=== PATIENT | female | born 1960 | race Two or more races ===

== ENCOUNTER 2024-09-29 11:54 | Emergency (ER) | payer OTHER ==
[~2024-09-29] VITALS: Ht 165.1 cm; Wt 77.0 kg
--- NOTE | 2024-09-29 12:02 | ECG ---
[facility] Test Date: 2024-09-29 Test Time: 12:01:12 Pat Name: NICOLE ALFORD Department: ER Room: Gender: F [employer]ty Manufacturing Supervisor: LYUDMILA : 1960 Requested By: ODELL MCINTOSH Order Number: [id number] Reading MD: Measurements Intervals [place] Rate: 86 P: 30 [place]: 141 QRS: -72 QRSD: 90 T: 56 QT: 401 QTc: 480 Interpretive Statements Sinus rhythm Left anterior fascicular block Abnormal R-wave progression, late transition Please click the below link to view image of tracing.
[2024-09-29] MEDS: ASPirin 325 MG TAB PO ONE (12:30)
[2024-09-29] MEDS: NITROGLYCERIN 2% OINT 1GM PKG TD ONE (12:30)
[2024-09-29] MEDS: ACETAMINOPHEN 500 MG TAB or CAP PO ONE (12:31)
[2024-09-29 12:40] VITALS: PULSE 85; RESP 18; O2SAT 96
--- NOTE | 2024-09-29 12:58 | ED.PDOC ---
HPI Comments 64 y.o female with PMHx of HTN, DJD, chronic back pain, DM, Hyperlipidemia, uterine cancer, presents to the ED via EMS for a chief complaint of intermittent substernal chest pain associated with palpitations and left arm numbness that started 2 weeks ago. Patient describes pain as sharp and is accompanied with spasms that last a couple of minutes. Patient reports symptoms worsened yesterday after coming back from a health fair, states she took her insulin at night but woke up in the middle of the night with BG reading 63. Patient also mentions SOB which worsens her chronic back pain. Patient denies any nausea, vomiting, fever, chills, recent illness, or contact exposure. Patient's blood pressure read 206/76 upon ED arrival. Patient has family history of DM and CHF. Chief Complaint: Palpitations Time Seen by MD: 12:02 Reviewed Notes: Nurses Notes, Medications, Allergies Allergies: Coded Allergies: Cephalexin (Verified Allergy, Unknown, 09/29/24) Information Source: Patient Mode of Arrival: Ambulatory Severity: Moderate Timing: Weeks (2) Duration: Intermittent Location: Substernal Quality: Sharp, Stabbing Onset: At Rest Cardiac Risk Factors: Family History, Hyperlipidemia, HTN, Diabetes PE Risk Factors: None History of: None Modifying Factors: Nothing Associated Signs and Symptoms: SOB, Palpitations, Back Pain Past Medical History PAST MEDICAL HISTORY: Cancer (uterine ), DM, High Lipids, HTN Past Medical History (Other): DJD, chronic back pain, right wrist infection Surgical History: Hysterectomy Surgical History (Other): right wrist and lymph nodes 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 History Family History Family History: Reviewed,noncontributory to illness, No family hx of Cancer, No family hx of DM, No family hx of Heart elen, No family hx of HTN, No family hx ofKidney elen, No family hx of Liver elen, No family hx of Lung elen, No family hx of Stroke Social History Smoker: Non-Smoker Alcohol: Denies ETOH Use Drugs: Denies Drug Use Lives In: Home Constitutional: denies: chills, diaphoresis, fatigue, fever, malaise, sweats, weakness, others EENTM: denies: blurred vision, double vision, ear bleeding, ear discharge, ear drainage, ear pain, ear ringing, eye pain, eye redness, hearing loss, mouth pain, mouth swelling, nasal discharge, nose bleeding, nose congestion, nose pain, photophobia, tearing, throat pain, throat swelling, voice changes, others Respiratory: reports: SOB at rest, shortness of breath, SOB with excertion; denies: cough, hemoptysis, orthopnea, stridor, wheezing, others Cardiovascular: reports: chest pain, palpitations; denies: dizzy spells, diaphoresis, Dyspnea on exertion, edema, irregular heart beat, left arm pain, lightheadedness, PND, syncope, others Gastrointestinal: denies: abdomen distended, abdominal pain, blood streaked bowels, constipated, diarrhea, dysphagia, difficulty swallowing, hematemesis, melena, nausea, poor appetite, poor fluid intake, rectal bleeding, rectal pain, vomiting, others Genitourinary: denies: abnormal vagina bleeding, burning, dyspareunia, dysuria, flank pain, frequency, hematuria, incontinence, pain, , vagina discharge, urgency, others Neurological: denies: dizziness, fainting, headache, left sided numbness, left sided weakness, numbness, paresthesia, pre-existing deficit, right sided numbness, right sided weakness, seizure, speech problems, tingling, tremors, weakness, others Musculoskeletal: denies: back pain, gout, joint pain, joint swelling, muscle pain, muscle stiffness, neck pain, others Integumetry: denies: bruises, change in color, change in hair/nails, dryness, laceration, lesions, lumps, rash, wounds, others Allergic/Immunocompromised: denies: Difficulty Healing, Frequent Infections, Hives, Itching, others Hematologic/Lymphatic: denies: anemia, blood clots, easy bleeding, easy bruising, swollen glands, others Endocrine: denies: excessive hunger, excessive sweating, excessive thirst, excessive urination, flushing, intolerance to cold, intolerance to heat, unexplained weight gain, unexplained weight loss, others Psychiatric: denies: anxiety, bipolar disorder, depression, hopeless, panic disorder, schizophrenia, sleepless, suicidal, others All Other Systems: Reviewed and Negative Physical Exam General Appearance: No Apparent Distress HEENT: Other (Pupils And face symmetric, moist mucous membranes) Neck: Full Range of Motion, Normal Inspection Respiratory: Lungs Clear, No Accessory Muscle Use, No Respiratory Distress, Normal Breath Sounds Cardiovascular: No Edema, No JVD, Regular Rate/Rhythm Breast Exam: Deferred Gastrointestinal: Non Tender, Soft Genitalia: Deferred Pelvic: Deferred Rectal: Deferred Extremities: Normal inspection, Normal range of motion, Non-tender, No pedal edema Neurologic: Alert (Oriented x4), Normal Affect, Normal Mood, Other (Ambulatory without difficulty. No gross focal deficit.) Cerebellar Function: NOT DONE Reflexes: NOT DONE Skin: Dry, Normal Color, Warm Lymphatic: NOT DONE EKG EKG : Comments Sinus rhythm, rate 86, normal AR and QRS intervals, QTC 480, borderline left axis deviation, left anterior fascicular block, nonspecific T changes. Was a procedure done? Was a procedure done?: No CP Differential Dx Differential Diagnosis: Angina, Anxiety / Panic Attack, MT Differential Diagnosis: CHF, HTN Essential, HTN Accelerated Differential Diagnosis: Angina, Chest Wall Pain, Cholelithiasis, Costochondritis, Myocardial Infarction, Pericarditis, Pneumonia, Pulmonary Embolus X-Ray, Labs, Meds, VS Vital Signs Date Time Temp Pulse Resp B/P (MAP) Pulse Ox O2 Delivery O2 Flow Rate FiO2 09/29/24 21:06 78 173/74 09/29/24 20:35 97.3 77 16 173/74 (107) 93 97.3 09/29/24 16:54 77 16 93 Room Air 09/29/24 16:54 97.3 77 16 158/69 (98) 93 97.3 09/29/24 13:30 160/78 09/29/24 12:40 85 18 96 Room Air* 0 21 09/29/24 12:30 203/75 09/29/24 12:08 98.9 90 18 203/75 (117) 97 09/29/24 12:01 86 Lab Test 09/29/24 20:44 09/29/24 14:02 09/29/24 12:53 09/29/24 12:10 Range/Units Troponin I High Sensitivity < 3 L < 3 L < 3 L </=34 ng/L White Blood Count 10.1 4.4-10.8 10^3/uL Red Blood Count 4.70 4.0-5.20 10^6/uL Hemoglobin 13.8 12.2-16.2 g/dL Hematocrit 39.9 36.0-46.0 % Mean Corpuscular Volume 84.8 80.0-100.0 fL Mean Corpuscular Hemoglobin 29.4 28.0-32.0 pg Mean Corpuscular Hemoglobin Concent 34.6 32.0-36.0 g/dL Red Cell Distribution Width 14.0 11.8-14.3 % Platelet Count 271 140-450 10^3/uL Mean Platelet Volume 8.5 6.9-10.8 fL Neutrophils (%) (Auto) 61.4 37.0-80.0 % Lymphocytes (%) (Auto) 30.7 10.0-50.0 % Monocytes (%) (Auto) 5.2 0.0-12.0 % Eosinophils (%) (Auto) 2.1 0.0-7.0 % Basophils (%) (Auto) 0.6 0.0-2.0 % Neutrophils # (Auto) 6.2 1.6-8.6 10 ^3/uL Lymphocytes # (Auto) 3.1 0.4-5.4 10 ^3/uL Monocytes # (Auto) 0.5 0-1.3 10 ^3/uL Eosinophils # (Auto) 0.2 0-0.8 10 ^3/uL Basophils # (Auto) 0.1 0-0.2 10 ^3/uL Nucleated Red Blood Cells 0.1 % Sodium Level 141 136-145 mmol/L Potassium Level 4.7 3.5-5.1 mmol/L Chloride Level 103 98-107 mmol/L Carbon Dioxide Level 30 20-31 mmol/L Anion Gap 8 5-15 Blood Urea Nitrogen 15 9-23 mg/dL Creatinine 0.92 0.550-1.02 mg/dL Glomerular Filtration Rate Calc 70 >90 mL/min BUN/Creatinine Ratio 16.3 10.0-20.0 Serum Glucose 253 H 74-106 mg/dL Calcium Level 9.9 8.7-10.4 mg/dL B-Type Natriuretic Peptide 36.31 0-100 pg/mL Urine Color Light-yellow Yellow Urine Clarity Clear Clear Urine pH 6.0 5.0-9.0 Urine Specific [place] 1.015 1.001-1.035 Urine Protein 1+ H Negative Urine Ketones Negative Negative Urine Blood Negative Negative /uL Urine Nitrite Negative Negative Urine Bilirubin Negative Negative Urine Urobilinogen Normal Negative mg/dL Urine Leukocyte Esterase Negative Negative /uL Urine RBC 3 0 - 4 /hpf Urine Microscopic WBC 1 0-5 /HPF Urine Squamous Epithelial Cells None seen <5 /hpf Urine Bacteria None seen None Seen /hpf Urine Glucose 3+ H Normal mg/dL Current Medications Medications (Trade) Dose Ordered Sig/Jalen Route Start Time Stop Time Status Last Admin Aspirin 325 mg ONCE ONCE PO 09/29/24 12:15 09/29/24 12:16 DC 09/29/24 12:30 Nitroglycerin (Nitro-Bid) 1 pkg ONCE ONCE TD 09/29/24 12:15 09/29/24 12:16 DC 09/29/24 12:30 Acetaminophen (Tylenol Tablet Or Capsule) 1,000 mg ONCE ONCE PO 09/29/24 12:15 09/29/24 12:16 DC 09/29/24 12:31 Metoprolol Succinate (Toprol Xl) 25 mg ONCE ONCE PO 09/29/24 21:00 09/29/24 21:01 DC 09/29/24 21:06 [place] [id number] Ph: [phone] DIAGNOSTIC IMAGING Diagnostic Imaging Report : [id number] Signed PATIENT: NICOLE ALFORD ACCT: [id number] UNIT: [id number] : 1960 LOC: ER ROOM / BED: / AGE / SEX: 64 / F ADM STATUS: REG ER SERVICE 1158 ORDERING PHYSICIAN: ODELL WEISS MD PROCEDURE(s): CXRP - CHEST PORTABLE REASON: cp ORDER NUMBER(s): [id number], ACCESSION NUMBER(s): [id number] EXAM: XY CHEST PORTABLE TECHNIQUE: Single frontal chest radiograph CLINICAL HISTORY: cp COMPARISON: None Findings/Impression: Frontal chest radiograph demonstrates no acute osseous or superficial soft tissue abnormalities. The trachea is midline. The cardiac silhouette and mediastinum are within normal limits. No pneumothorax, pleural effusions, or consolidations. ATED BY: MANA BELL DO DICTATED DATE/TIME: 09/29/24 1342 SIGNED BY: MANA BELL DO SIGNED DATE/TIME: 09/29/24 1342 CC: X-Ray, Labs, Meds, VS Comment 64-year-old female with a history of hypertension, diabetes and hyperlipidemia complaining of chest pain and found to have elevated blood pressure Vitals remarkable for BP 203/75 Exam unremarkable Rhythm strip independently interpreted by me: sinus rhythm, rate 86, no ectopy. Chest x-ray unremarkable CBC unremarkable, metabolic panel, BNP remarkable for glucose 253, BNP and troponins unremarkable Patient treated with the following in the ED: Aspirin 325 mg p.o., nitro bid 1/2 inch to chest wall, Tylenol 1 g p.o. On re-evaluation, patient states chest pain has improved, blood pressure is 158/69, and other vitals were stable. Plan is to admit the patient for blood pressure control and Cardiology evaluation. Case was discussed with DEONDRE Dillard, who saw the patient in the ED. He ordered a 3rd troponin which was unremarkable. He will arrange for the patient to have close cardiology follow-up and will discharge the patient. Time of 1ST Reevaluation: 12:58 Reevaluation 1ST: Unchanged Patient Education/Counseling: Diagnosis, Treatment, Prognosis Family Education/Counseling: No Family Present Departure 1 Departure Time of Disposition: 17:00 Impression: Primary Impression: Chest pain with high risk for cardiac etiology Additional Impression: Hypertensive urgency Disposition: ADMITTED INPATIENT Admit to: Tele Condition: Guarded Critical Care Note Critical Care Time?: No Stability Stability form required: No Heart Score Heart Score: Heart Score Response (Comments) Value History Highly Suspicious 2 EKG Repolarization Disturb 1 Age 45-64 1 Risk Factors >3 or Hx ASHD 2 Troponin Normal limit 0 Total 6 I personally scribed for ODELL WEISS MD ([facility] on 09/29/24 at 12:58. Electronically submitted by Ariadne Monroy ([facility]). I personally scribed for ODELL WEISS MD ([email or web address]) on 09/29/24 at 15:09. Electronically submitted by Ariadne Monroy ([facility]). ODELL WEISS MD Sep 29, 2024 12:58
[2024-09-29 13:21] LABS: Basophils # (auto) 0.1 10 ^3/uL (0-0.2); Basophils % (auto) 0.6 % (0.0-2.0); Eosinophils # (auto) 0.2 10 ^3/uL (0-0.8); Eosinophils % (auto) 2.1 % (0.0-7.0); Hematocrit 39.9 % (36.0-46.0); Hemoglobin 13.8 g/dL (12.2-16.2); Lymphocytes # (auto) 3.1 10 ^3/uL (0.4-5.4); Lymphocytes % (auto) 30.7 % (10.0-50.0); Mean Corpuscular Hemoglobin 29.4 pg (28.0-32.0); Mean Corpuscular Hgb Conc. 34.6 g/dL (32.0-36.0); Mean Corpuscular Volume 84.8 fL (80.0-100.0); Monocytes # (auto) 0.5 10 ^3/uL (0-1.3); Monocytes % (auto) 5.2 % (0.0-12.0); Neutrophils # (auto) 6.2 10 ^3/uL (1.6-8.6); Neutrophils % (auto) 61.4 % (37.0-80.0); Nucleated Red Blood Cells % 0.1 %; Platelet Count (auto) 271 10^3/uL (140-450); White Blood Cell 10.1 10^3/uL (4.4-10.8)
[2024-09-29 13:34] LABS: Chloride 103 mmol/L (98-107); Potassium 4.7 mmol/L (3.5-5.1); Sodium 141 mmol/L (136-145)
[2024-09-29 13:35] LABS: Anion Gap 8 (5-15); Calcium 9.9 mg/dL (8.7-10.4); Carbon Dioxide 30 mmol/L (20-31)
[2024-09-29 13:40] LABS: BUN/Creatinine Ratio 16.3 (10.0-20.0); Blood Urea Nitrogen 15 mg/dL (9-23)
--- NOTE | 2024-09-29 13:44 | DVH ---
EXAM: XY CHEST PORTABLE TECHNIQUE: Single frontal chest radiograph CLINICAL HISTORY: cp COMPARISON: None Findings/Impression: Frontal chest radiograph demonstrates no acute osseous or superficial soft tissue abnormalities. The trachea is midline. The cardiac silhouette and mediastinum are within normal limits. No pneumothorax, pleural effusions, or consolidations.
[2024-09-29 13:53] LABS: Glucose 253 mg/dL (74-106)
[2024-09-29 15:46] LABS: Urine Bacteria None Seen /hpf (None Seen)
[2024-09-29 15:54] LABS: Urine Blood Negative /uL (Negative); Urine Clarity Clear (Clear); Urine Color Light-Yellow (Yellow); Urine Protein, UAD 1+ (Negative); Urine Specific Gravity 1.015 (1.001-1.035); Urine Squamous Epithelial Cell None Seen /hpf (<5); Urine Urobilinogen Normal (Negative); Urine WBC 1 /HPF (0-5)
[2024-09-29 20:35] VITALS: BP 173/74; PULSE 77; RESP 16; TEMP 97.3; O2SAT 93
[2024-09-29] MEDS: METOPROLOL SUCCINATE XL 50 MG TAB PO ONE (21:06)
--- NOTE | 2024-09-29 21:53 | DVHINCON2 ---
CARLOS ALBERTO VERGARA CREMATORY ATTENDANT 09/29/[id number]: Date of service: Sep 29, [address] Clemente Reason for Consultation Medical management History of Present Illness 64-year-old female with past medical history DM, hypertension, hyperlipidemia presents with complaints of intermittent chest pain x2 weeks. Patient was walking around a Health fair when chest pain worsened today. Also endorsed palpitations. On arrival to the emergency department patient was found to be hypertensive with blood pressure 203/75. Patient was treated with aspirin and nitro paste which did improve the blood pressure. At this time chest pain has improved. There are no complaints of fevers, chills, shortness of breath, dizziness, diaphoresis, nausea, vomiting, leg edema. Past Medical History Hypertension, hyperlipidemia, DM, uterine cancer Social History Denies ETOH, illicit drug use,Smoking Allergies: Coded Allergies: Cephalexin (Verified Allergy, Unknown, 09/29/24) Review of Systems 10 Systems reviewed and negative except as per HPI Vital Signs Vital Signs Date Time Temp Pulse Resp B/P (MAP) Pulse Ox O2 Delivery O2 Flow Rate FiO2 09/29/24 21:06 78 173/74 09/29/24 20:35 97.3 16 93 97.3 09/29/24 16:54 Room Air 09/29/24 12:40 0 21 Physical Exam GENERAL: Patient appearing stated age, in no acute distress. HEENT: Pupils equal and reactive to light and accommodation. Extraocular muscles intact. Mucous membranes moist. Conjunctivae pink. Anicteric sclerae. LUNGS: Bilateral air entry. No wheezes, rhonchi or rales. HEART: Regular rate and rhythm. Normal S1 and S2. ABDOMEN: BS normoactive, soft, nontender, and nondistended. No CVA tenderness. EXTREMITIES: No clubbing, cyanosis, edema. No calf tenderness. Pedal pulses 2+. NEUROLOGICAL: The patient is alert and oriented times 3. CN II-XII intact. No focal deficits on gross sensory or motor examination. Labs/Diagnostic Data Labs Test 09/29/24 20:44 09/29/24 12:53 09/29/24 12:10 Range/Units Troponin I High Sensitivity < 3 L </=34 ng/L White Blood Count 10.1 4.4-10.8 10^3/uL Red Blood Count 4.70 4.0-5.20 10^6/uL Hemoglobin 13.8 12.2-16.2 g/dL Hematocrit 39.9 36.0-46.0 % Mean Corpuscular Volume 84.8 80.0-100.0 fL Mean Corpuscular Hemoglobin 29.4 28.0-32.0 pg Mean Corpuscular Hemoglobin Concent 34.6 32.0-36.0 g/dL Red Cell Distribution Width 14.0 11.8-14.3 % Platelet Count 271 140-450 10^3/uL Mean Platelet Volume 8.5 6.9-10.8 fL Neutrophils (%) (Auto) 61.4 37.0-80.0 % Lymphocytes (%) (Auto) 30.7 10.0-50.0 % Monocytes (%) (Auto) 5.2 0.0-12.0 % Eosinophils (%) (Auto) 2.1 0.0-7.0 % Basophils (%) (Auto) 0.6 0.0-2.0 % Neutrophils # (Auto) 6.2 1.6-8.6 10 ^3/uL Lymphocytes # (Auto) 3.1 0.4-5.4 10 ^3/uL Monocytes # (Auto) 0.5 0-1.3 10 ^3/uL Eosinophils # (Auto) 0.2 0-0.8 10 ^3/uL Basophils # (Auto) 0.1 0-0.2 10 ^3/uL Nucleated Red Blood Cells 0.1 % Sodium Level 141 136-145 mmol/L Potassium Level 4.7 3.5-5.1 mmol/L Chloride Level 103 98-107 mmol/L Carbon Dioxide Level 30 20-31 mmol/L Anion Gap 8 5-15 Blood Urea Nitrogen 15 9-23 mg/dL Creatinine 0.92 0.550-1.02 mg/dL Glomerular Filtration Rate Calc 70 >90 mL/min BUN/Creatinine Ratio 16.3 10.0-20.0 Serum Glucose 253 H 74-106 mg/dL Calcium Level 9.9 8.7-10.4 mg/dL B-Type Natriuretic Peptide 36.31 0-100 pg/mL Urine Color Light-yellow Yellow Urine Clarity Clear Clear Urine pH 6.0 5.0-9.0 Urine Specific [place] 1.015 1.001-1.035 Urine Protein 1+ H Negative Urine Ketones Negative Negative Urine Blood Negative Negative /uL Urine Nitrite Negative Negative Urine Bilirubin Negative Negative Urine Urobilinogen Normal Negative mg/dL Urine Leukocyte Esterase Negative Negative /uL Urine RBC 3 0 - 4 /hpf Urine Microscopic WBC 1 0-5 /HPF Urine Squamous Epithelial Cells None seen <5 /hpf Urine Bacteria None seen None Seen /hpf Urine Glucose 3+ H Normal mg/dL Assessment Chest pain Uncontrolled Hypertension Patient was seen and evaluated ER [facility]. Patient is alert and oriented x3 with no signs of acute distress. Patient afebrile, oxygen saturation 95%. Heart rate 73, BP 173/74. Troponin taken at 1:00 p.m., 4:00 p.m., 8:45 p.m. all negative . CXR is unremarkable. ECG SR 86. Plan/Recommendation Patient can be discharged home. Patient was provided with a dose of her home blood pressure medications prior to discharge for hypertensive management. O designated case management has been consulted to establish STAT outpatient cardiac follow-up with Dr Tong. We will also follow up with home health safety evaluation. At this time the patient was provided with strict ER precautions including but not limited to dizziness, diaphoresis, headache, unilateral deficits, syncope, shortness of breath, chest pain, palpitations, nausea, vomiting. If any of these occur the patient was instructed to return to the emergency department immediately. Plan of care was discussed in detail with with the patient who agreed and verbalized understanding. Case management will be contacting her to establish outpatient follow-up appointments. Patient case and plan of care was discussed in detail with supervising physician who is in agreement. Plan discussed with: Patient AMAURY WHITAKER MD 09/30/24 1208: Allergies: Coded Allergies: Cephalexin (Verified Allergy, Unknown, 09/29/24) Assessment Patient chart is reviewed and discussed with the nurse practitioners. I agree with nurse practitioner's evaluation, documentation, assessment and care plan as outlined. Plan discussed with: Other CARLOS ALBERTO VERGARA NP Sep 29, 2024 21:53 AMAURY WHITAKER MD Sep 30, 2024 12:08
== END 2024-09-29 21:45 | disposition home or self-care (01) ==
LOC: ER 11:54
DX: R07.89 Other chest pain (principal); M54.50 Low back pain, unspecified; I16.0 Hypertensive urgency; E11.9 Type 2 diabetes mellitus without complications; E78.5 Hyperlipidemia, unspecified; Z85.42 Personal history of malignant neoplasm of other parts of uterus; Z90.710 Acquired absence of both cervix and uterus; Z88.1 Allergy status to other antibiotic agents
CPT/HCPCS: 36415; 71045; 80048; 81001; 83880; 84484; 85025; 93005